=== PATIENT | male | born 2000 | race American Indian/Alaskan Native ===

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

== ENCOUNTER 2020-06-18 11:42 | Emergency (ER) | payer SELFPAY ==
[2020-06-18] MEDS ORDERED: Albuterol/Ipratropium 3.0-0.5 MG/3 ML Neb Soln NEB ONE (12:53)
--- NOTE | 2020-06-18 12:54 | EDM.PDOC ---
ED HPI GENERAL MEDICAL PROBLEM - General Chief Complaint: Respiratory Problem Stated Complaint: sob Time Seen by Provider: 06/18/20 12:45 Source of Information: Reports: Patient History Limitations: Reports: No Limitations - History of Present Illness INITIAL COMMENTS - FREE TEXT/NARRATIVE: Patient comes emergency department today with complaints of shortness of breath and wheezing. This patient over the past 2 to 3 days is had quite a bit of sinus congestion pressure and drainage in the posterior pharynx. He has been quite a bit short of breath with physical exertion. There is been a couple times that he was so short of breath that it made him collapsed to the ground. He has no history of asthma. He has no pain in his chest. He has no cough or congestion. No fever no chills. He was just tested for COVID earlier this week that was negative. He has had no other COVID symptoms are COVID concerns. He is actually here from [facility] for football. Not a smoker. He has no chest pain. He has never had anything like this before. He has noticed that he has been a little bit more short of breath ever since he moved here from [facility]. - Related Data Allergies Allergy/AdvReac Type Severity Reaction Status Date / Time No Known Allergies Allergy Verified 06/18/20 12:12 Home Meds: Home Meds predniSONE 40 mg PO DAILY #8 tab 06/18/20 [Rx] Past Medical History - Past Health History Medical/Surgical History: Denies Medical/Surgical History Social & Family History - Tobacco Use Smoking Status *Q: Never Smoker ED ROS GENERAL - Review of Systems Review Of Systems: Comprehensive ROS is negative, except as noted in HPI. ED EXAM, GENERAL - Physical Exam Exam: See Below Exam Limited By: No Limitations General Appearance: Alert, WD/WN, No Apparent Distress Nose: Nasal Swelling (Is quite a bit of pale boggy turbinates with quite a bit of a discharge.), Clear Rhinorrhea Throat/Mouth: Normal Inspection, Normal Lips, Normal Teeth, Normal Gums, Normal Voice, No Airway Compromise. No: Normal Oropharynx (Posterior pharynx with pink salmon-colored vesicles and cobblestoning consistent with postnasal drip) Head: Atraumatic, Normocephalic Neck: Normal Inspection, Supple, Full Range of Motion. No: Lymphadenopathy (L), Lymphadenopathy (R) Respiratory/Chest: No Respiratory Distress, No Accessory Muscle Use, Decreased Breath Sounds (Throughout), Wheezing (Inspiratory and expiratory). No: Crackles, Rales, Rhonchi, Stridor Cardiovascular: Normal Peripheral Pulses, Regular Rate, Rhythm, Tachycardia Peripheral Pulses: 2+: Radial (L), Radial (R), Posterior Tibial (L), Posterior Tibial (R), Dorsalis Pedis (L), Dorsalis Pedis (R) GI/Abdominal: Normal Bowel Sounds, Soft, Non-Tender (Male) Exam: Deferred Rectal (Males) Exam: Deferred Back Exam: Normal Inspection, Full Range of Motion Extremities: Normal Inspection, Normal Range of Motion Neurological: Alert, Oriented, Normal Cognition, No Motor/Sensory Deficits Psychiatric: Normal Affect, Normal Mood Skin Exam: Warm, Dry, Intact, Normal Color Course - Vital Signs Last Recorded V/S: Last Vital Signs Temp 98.2 F 06/18/20 11:50 Pulse 107 H 06/18/20 11:50 Resp 18 06/18/20 11:50 BP 151/84 H 06/18/20 11:50 Pulse Ox 92 L 06/18/20 11:50 - Orders/Labs/Meds Orders: Active Orders 24 hr Category Date Time Status Chest 2V [CR] Urgent Exams 06/18/20 12:53 Taken Labs: Laboratory Tests 06/18/20 06/18/20 06/18/20 Range/Units 12:03 13:00 13:00 WBC 10.2 H (4.0-10.0) x10^3/uL RBC 5.96 (4.5-6.0) x10^6/uL Hgb 15.5 (14.0-18.0) g/dL Hct 46.7 (40.0-52.0) % MCV 78.4 (78.0-93.0) fL MCH 26.0 (26.0-32.0) pg MCHC 33.2 (32.0-36.0) g/dL RDW Coeff of Ritchie 13.4 (10.0-15.0) % Plt Count 316 (130-400) x10^3/uL Add Manual Diff Yes Neutrophils % (Manual) 56 (50-80) % Lymphocytes % (Manual) 16 L (25-50) % Monocytes % (Manual) 9 (2-11) % Eosinophils % (Manual) 19 H (0-4) % Platelet Estimate Adequate Microcytosis 1+ slight H Sodium 138 (136-145) mmol/L Potassium 4.0 (3.5-5.1) mmol/L Chloride 101 (98-107) mmol/L Carbon Dioxide 29 (21-32) mmol/L Anion Gap 12.0 (10-20) mmol/L BUN 9 (7-18) mg/dL Creatinine 1.2 (0.70-1.30) mg/dL Est Cr Clr Drug Dosing TNP Estimated GFR (MDRD) > 60 Glucose 96 (74-106) mg/dL Calcium 9.5 (8.5-10.1) mg/dL C-Reactive Protein 2.9 H (<=0.9) mg/dL COVID-19 (CLEMENCIA) Negative (NEGATIVE) Meds: Medications Discontinued Medications Generic Name Dose Route Start Last Admin Trade Name Freq PRN Reason Stop Dose Admin Albuterol 0 gm 06/18/20 13:34 06/18/20 13:50 Ventolin Hfa INH 18 gm Q4H PRN Administration Shortness of Breath Albuterol/Ipratropium 3 ml 06/18/20 12:53 06/18/20 13:03 Duoneb 3.0-0.5 Mg/3 Ml NEB 06/18/20 12:54 3 ml ONETIME ONE Administration Prednisone 40 mg 06/18/20 13:35 06/18/20 13:50 Prednisone PO 06/18/20 13:36 40 mg NOW ONE Administration - Radiology Interpretation Free Text/Narrative:: This x-ray per radiology says negative examination of the chest - Re-Assessments/Exams Free Text/Narrative Re-Assessment/Exam: 06/18/20 15:52 Laboratory evaluation is rather unremarkable with a mildly elevated WBC at 10.5. A CRP of 2.9 minimally elevated. Chest x-ray is negative for pneumonia or consolidation or other concerns per radiology. She was given a DuoNeb with complete symptomatic resolution. He has much improved air movement throughout his lung barillas by auscultation. He has a very faint expiratory wheezing and he feels back to normal. Although he has no history of asthma this is kind of the presentation but with the abrupt onset of it and his age this is most likely allergic type response with the findings in his nares as well as the posterior pharynx. We will treat him with an inhaler as well as prednisone and nasal steroids. I would like him to recheck in a week or so if he still struggling with any concerns to see if he needs any further work-up or evaluation. He is understanding of this and his questions are answered. Departure - Departure Time of Disposition: 13:35 Disposition: Home, Self-Care 01 Clinical Impression: Wheezing - Discharge Information Prescriptions: predniSONE 40 mg PO DAILY #8 tab Instructions: Shortness of Breath, Adult, [id number], How to Use a Metered Dose Inhaler Referrals: PCP,Not In Area [Primary Care Provider] - Forms: ED Department Discharge Additional Instructions: Flonase nasal spray OTC 2 sprays each nostril once daily for a week and then 1 spray each nostril. OTC Zyrtec Deisi or Xyzal for wheezing SOB and allergies as well. Albuterol MDI inhaler, 2 puffs every 4 hrs as needed for SOB. Dispensed from the ED. Prednisone 40mg daily for the next 5 days. First dose given in the ED and RX sent to [facility]. Return to the ED if new or worsening symptoms. Follow up with PCP for recheck. May need more testing or different therapy although I feel this is most likely allergies. Sepsis Event Note (ED) - Evaluation Sepsis Screening Result: No Definite Risk - Focused Exam Vital Signs: Vital Signs Temp Pulse Resp BP Pulse Ox 06/18/20 11:50 98.2 F 107 H 18 151/84 H 92 L - My Orders Last 24 Hours: My Active Orders 06/18/20 12:53 Chest 2V [CR] Urgent - Assessment/Plan Last 24 Hours: My Active Orders 06/18/20 12:53 Chest 2V [CR] Urgent
[2020-06-18 13:17] LABS: CHLORIDE,CL 101 mmol/L (98-107); SODIUM,NA 138 mmol/L (136-145)
[2020-06-18] MEDS ORDERED: Albuterol HFA 18 Gm Inhaler INH PRN (13:34)
[2020-06-18] MEDS ORDERED: predniSONE 20 MG Tab PO ONE (13:35)
--- NOTE | 2020-06-19 10:44 | CR ---
[id number] RAD/RAD Chest PA And Lateral EXAM: RAD Chest PA And Lateral INDICATION: CHEST PAIN/ SOB COMPARISON: None. DISCUSSION: Cardiomediastinal silhouette is normal in size and contour. No infiltrate, effusion, pneumothorax, or edema. IMPRESSION: Negative examination of the chest. Garrett Barillas MD 06/19/20 1043 Thank you for allowing us to participate in the care of your patient.
== END 2020-06-18 13:53 | disposition home or self-care (01) ==
LOC: VM.ED 11:42
DX: R06.2 Wheezing (principal); R06.02 Shortness of breath; Z20.828 Contact with and (suspected) exposure to other viral communicable diseases; Z79.899 Other long term (current) drug therapy
CPT/HCPCS: 36415; 71046; 80048; 85025; 86140; 94640; 99284; 99285-25; A9270-GY; J7512; J7620-GY; U0002

== ENCOUNTER 2020-06-26 17:38 | Emergency (ER) | payer MEDICAID, OTHER ==
[2020-06-26] MEDS ORDERED: Sodium Chloride 0.9% 10 ML Syringe FLUSH PRN (17:46)
--- NOTE | 2020-06-26 17:52 | EDM.PDOC ---
ED HPI GENERAL MEDICAL PROBLEM - General Stated Complaint: SOB Time Seen by Provider: 06/26/20 17:46 Source of Information: Reports: Patient - History of Present Illness INITIAL COMMENTS - FREE TEXT/NARRATIVE: Dante is a 19 y/o male who is brought to the ER by ambulance after he had an acute onset of shortness of breath a couple hours ago. He denied that he felt ill prior to the SOB starting. He does report that one of his housemate's girlfriend was + for COVID and he has been on quarantine since finding that out. He denies any previous respiratory history. - Related Data Allergies Allergy/AdvReac Type Severity Reaction Status Date / Time No Known Allergies Allergy Verified 06/26/20 18:07 Home Meds: Home Meds predniSONE 40 mg PO DAILY #8 tab 06/18/20 [Rx] Past Medical History - Past Health History Medical/Surgical History: Denies Medical/Surgical History Review of Systems - Review of Systems Review Of Systems: See Below Constitutional: Reports: Diaphoresis Eyes: Reports: No Symptoms Ears: Reports: No Symptoms Nose: Reports: No Symptoms Mouth/Throat: Reports: No Symptoms Respiratory: Reports: Shortness of Breath, Wheezing Cardiovascular: Reports: No Symptoms GI/Abdominal: Reports: Nausea Genitourinary: Reports: No Symptoms Musculoskeletal: Reports: No Symptoms Skin: Reports: No Symptoms Neurological: Reports: No Symptoms Psychiatric: Reports: No Symptoms ED EXAM, GENERAL - Physical Exam Exam: See Below General Appearance: Alert, WD/WN (Adolescent male, he is obviously in distress with the SOB and sitting up to catch his breath) Ears: Hearing Grossly Normal Nose: Normal Inspection Throat/Mouth: Normal Teeth Head: Atraumatic, Normocephalic Neck: Normal Inspection Respiratory/Chest: Respiratory Distress, Decreased Breath Sounds, Wheezing (faisnt wheezing inspiratory and expiratory) GI/Abdominal: Normal Bowel Sounds, Soft (Male) Exam: Deferred Rectal (Males) Exam: Deferred Back Exam: Normal Inspection Extremities: Normal Inspection, Normal Capillary Refill Neurological: Alert, Oriented, CN II-XII Intact, Normal Cognition Psychiatric: Anxious Skin Exam: Warm, Intact, Normal Color, No Rash, Diaphoretic Lymphatic: No Adenopathy EKG INTERPRETATION EKG Date: 06/26/20 Time: 18:33 Rhythm: NSR Rate (Beats/Min): 135 [place]: Normal P-Wave: Present QRS: Normal ST-T: Normal QT: Normal Comparison: NA - No Prior EKG Course - Vital Signs Text/Narrative:: The patient was seen by the GROUP SALES REPRESENTATIVE. Labs, CXR, adn EKG ordered. He was given SoluMedrol 125mg IVPB and a neb prior to ER arrival. Patient complained of nausea and was given Zofran 4mg IVP. 1899 Patient breathing easier and is now on oxygen per NC at 4 liters/min. Still needing to sit up in a tripod position for breathing. Note D-Dimer elevated, CTA ordered. Oxygen decreased to 2 liters to see if patient can tolerate it. Will repeat Albuterol neb since patient is still mildly SOB. 2099 CTA results note moderate pneumomediastinum. Grayson Yang contacted and discussed case with hospitalist who advises that the patient be sent to [facility] ER for further evaluation. Dr Rainey accepted the patient for transfer to the ER. 2119 Patient now on room air and sats 91-92%, still in a position of comfort for breathing. Patient left the ER with [facility] in good condition. Last Recorded V/S: Last Vital Signs Temp 37.0 C 06/26/20 17:45 Pulse 94 06/26/20 17:45 Resp 20 06/26/20 17:45 BP 121/81 06/26/20 17:45 Pulse Ox 98 06/26/20 17:45 - Orders/Labs/Meds Orders: Active Orders 24 hr Category Date Time Status EKG Documentation Completion [RC] STAT Care 06/26/20 17:46 Active RT Aerosol Therapy [RC] ASDIRECTED Care 06/26/20 17:59 Active RT Aerosol Therapy [RC] ASDIRECTED Care 06/26/20 19:25 Ordered Sodium Chloride 0.9% [Saline Flush] Med 06/26/20 17:46 Active 10 ml FLUSH ASDIRECTED PRN Saline Lock Insert [OM.PC] Stat Oth 06/26/20 17:46 Ordered Medication Orders Sodium Chloride (Saline Flush) 10 ml FLUSH ASDIRECTED PRN PRN Reason: Keep Vein Open Labs: Laboratory Tests 06/26/20 06/26/20 06/26/20 Range/Units 17:54 18:18 18:18 WBC 30.8 H* (4.0-10.0) x10^3/uL RBC 6.32 H (4.5-6.0) x10^6/uL Hgb 16.7 (14.0-18.0) g/dL Hct 49.1 (40.0-52.0) % MCV 77.7 L (78.0-93.0) fL MCH 26.4 (26.0-32.0) pg MCHC 34.0 (32.0-36.0) g/dL RDW Coeff of Ritchie 14.7 (10.0-15.0) % Plt Count 459 H D (130-400) x10^3/uL Add Manual Diff Yes Neutrophils % (Manual) 69 (50-80) % Band Neutrophils % 7 H (0-6) % Lymphocytes % (Manual) 9 L (25-50) % Monocytes % (Manual) 4 (2-11) % Eosinophils % (Manual) 11 H (0-4) % Platelet Estimate Increased H Microcytosis 1+ slight H PT 10.6 (9.5-12.3) SEC INR 1.0 L (2.0-3.5) APTT 24.3 L (25.6-32.8) SEC D-Dimer, Quantitative (<=0.58) mg/LFEU POC ABG pH (7.35-7.45) POC ABG pCO2 (35-45) mmHG POC ABG pO2 (80-105) mmHG POC ABG HCO3 (22-26) mmol/L POC ABG Total CO2 (23-27) mmol/L POC ABG O2 Sat (95-98) % POC ABG Base Excess (-2-3) mmol/L POC FiO2 Sodium (136-145) mmol/L Potassium (3.5-5.1) mmol/L Chloride (98-107) mmol/L Carbon Dioxide (21-32) mmol/L Anion Gap (10-20) mmol/L BUN (7-18) mg/dL Creatinine (0.70-1.30) mg/dL Est Cr Clr Drug Dosing Estimated GFR (MDRD) Glucose (74-106) mg/dL Lactic Acid (0.4-2.0) mmol/L Calcium (8.5-10.1) mg/dL Corrected Calcium (8.5-10.1) mg/dL Magnesium (1.8-2.4) mg/dL Total Bilirubin (0.2-1.0) mg/dL AST (15-37) U/L ALT (16-63) U/L Alkaline Phosphatase (46-116) U/L Troponin I (<=0.056) ng/mL Total Protein (6.4-8.2) g/dL Albumin (3.4-5.0) g/dL Globulin Albumin/Globulin Ratio POC Result Comm Urine Opiates Screen (NEGATIVE) Ur Buprenorphine Scrn (NEGATIVE) Ur Oxycodone Screen (NEGATIVE) Ur EDDP (Meth Metab) (NEGATIVE) Urine Methadone Screen (NEGATIVE) Ur Barbituates Screen (NEGATIVE) Ur Tricyclics Screen (NEGATIVE) Ur Phencyclidine Scrn (NEGATIVE) Ur Amphetamines Screen (NEGATIVE) U Methamphetamines Scrn (NEGATIVE) Urine MDMA Screen (NEGATIVE) U Benzodiazepines Scrn (NEGATIVE) Urine Cocaine Screen (NEGATIVE) U Marijuana (THC) Screen (NEGATIVE) Ethyl Alcohol (0-3) mg/dL COVID-19 (CLEMENCIA) Negative (NEGATIVE) 06/26/20 06/26/20 06/26/20 Range/Units 18:18 18:18 18:18 WBC (4.0-10.0) x10^3/uL RBC (4.5-6.0) x10^6/uL Hgb (14.0-18.0) g/dL Hct (40.0-52.0) % MCV (78.0-93.0) fL MCH (26.0-32.0) pg MCHC (32.0-36.0) g/dL RDW Coeff of Ritchie (10.0-15.0) % Plt Count (130-400) x10^3/uL Add Manual Diff Neutrophils % (Manual) (50-80) % Band Neutrophils % (0-6) % Lymphocytes % (Manual) (25-50) % Monocytes % (Manual) (2-11) % Eosinophils % (Manual) (0-4) % Platelet Estimate Microcytosis PT (9.5-12.3) SEC INR (2.0-3.5) APTT (25.6-32.8) SEC D-Dimer, Quantitative 0.94 H (<=0.58) mg/LFEU POC ABG pH (7.35-7.45) POC ABG pCO2 (35-45) mmHG POC ABG pO2 (80-105) mmHG POC ABG HCO3 (22-26) mmol/L POC ABG Total CO2 (23-27) mmol/L POC ABG O2 Sat (95-98) % POC ABG Base Excess (-2-3) mmol/L POC FiO2 Sodium 141 (136-145) mmol/L Potassium 4.0 (3.5-5.1) mmol/L Chloride 101 (98-107) mmol/L Carbon Dioxide 26 (21-32) mmol/L Anion Gap 18.0 (10-20) mmol/L BUN 9 (7-18) mg/dL Creatinine 1.1 (0.70-1.30) mg/dL Est Cr Clr Drug Dosing TNP Estimated GFR (MDRD) > 60 Glucose 195 H (74-106) mg/dL Lactic Acid 1.7 (0.4-2.0) mmol/L Calcium 9.5 (8.5-10.1) mg/dL Corrected Calcium 8.86 (8.5-10.1) mg/dL Magnesium 2.1 (1.8-2.4) mg/dL Total Bilirubin 0.5 (0.2-1.0) mg/dL AST 39 H (15-37) U/L ALT 72 H (16-63) U/L Alkaline Phosphatase 122 H (46-116) U/L Troponin I < 0.017 (<=0.056) ng/mL Total Protein 8.8 H (6.4-8.2) g/dL Albumin 4.8 (3.4-5.0) g/dL Globulin 4.0 Albumin/Globulin Ratio 1.20 POC Result Comm Urine Opiates Screen (NEGATIVE) Ur Buprenorphine Scrn (NEGATIVE) Ur Oxycodone Screen (NEGATIVE) Ur EDDP (Meth Metab) (NEGATIVE) Urine Methadone Screen (NEGATIVE) Ur Barbituates Screen (NEGATIVE) Ur Tricyclics Screen (NEGATIVE) Ur Phencyclidine Scrn (NEGATIVE) Ur Amphetamines Screen (NEGATIVE) U Methamphetamines Scrn (NEGATIVE) Urine MDMA Screen (NEGATIVE) U Benzodiazepines Scrn (NEGATIVE) Urine Cocaine Screen (NEGATIVE) U Marijuana (THC) Screen (NEGATIVE) Ethyl Alcohol < 3 (0-3) mg/dL COVID-19 (CLEMENCIA) (NEGATIVE) 06/26/20 06/26/20 Range/Units 18:27 20:34 WBC (4.0-10.0) x10^3/uL RBC (4.5-6.0) x10^6/uL Hgb (14.0-18.0) g/dL Hct (40.0-52.0) % MCV (78.0-93.0) fL MCH (26.0-32.0) pg MCHC (32.0-36.0) g/dL RDW Coeff of Ritchie (10.0-15.0) % Plt Count (130-400) x10^3/uL Add Manual Diff Neutrophils % (Manual) (50-80) % Band Neutrophils % (0-6) % Lymphocytes % (Manual) (25-50) % Monocytes % (Manual) (2-11) % Eosinophils % (Manual) (0-4) % Platelet Estimate Microcytosis PT (9.5-12.3) SEC INR (2.0-3.5) APTT (25.6-32.8) SEC D-Dimer, Quantitative (<=0.58) mg/LFEU POC ABG pH 7.278 L* (7.35-7.45) POC ABG pCO2 58 H (35-45) mmHG POC ABG pO2 149 H (80-105) mmHG POC ABG HCO3 27 H (22-26) mmol/L POC ABG Total CO2 29 H (23-27) mmol/L POC ABG O2 Sat 99 H (95-98) % POC ABG Base Excess 0 (-2-3) mmol/L POC FiO2 0.80 Sodium (136-145) mmol/L Potassium (3.5-5.1) mmol/L Chloride (98-107) mmol/L Carbon Dioxide (21-32) mmol/L Anion Gap (10-20) mmol/L BUN (7-18) mg/dL Creatinine (0.70-1.30) mg/dL Est Cr Clr Drug Dosing Estimated GFR (MDRD) Glucose (74-106) mg/dL Lactic Acid (0.4-2.0) mmol/L Calcium (8.5-10.1) mg/dL Corrected Calcium (8.5-10.1) mg/dL Magnesium (1.8-2.4) mg/dL Total Bilirubin (0.2-1.0) mg/dL AST (15-37) U/L ALT (16-63) U/L Alkaline Phosphatase (46-116) U/L Troponin I (<=0.056) ng/mL Total Protein (6.4-8.2) g/dL Albumin (3.4-5.0) g/dL Globulin Albumin/Globulin Ratio POC Result Comm Called results Urine Opiates Screen Negative (NEGATIVE) Ur Buprenorphine Scrn Negative (NEGATIVE) Ur Oxycodone Screen Negative (NEGATIVE) Ur EDDP (Meth Metab) Negative (NEGATIVE) Urine Methadone Screen Negative (NEGATIVE) Ur Barbituates Screen Negative (NEGATIVE) Ur Tricyclics Screen Negative (NEGATIVE) Ur Phencyclidine Scrn Negative (NEGATIVE) Ur Amphetamines Screen Negative (NEGATIVE) U Methamphetamines Scrn Negative (NEGATIVE) Urine MDMA Screen Negative (NEGATIVE) U Benzodiazepines Scrn Negative (NEGATIVE) Urine Cocaine Screen Negative (NEGATIVE) U Marijuana (THC) Screen Positive H (NEGATIVE) Ethyl Alcohol (0-3) mg/dL COVID-19 (CLEMENCIA) (NEGATIVE) Meds: Medications Generic Name Dose Route Start Last Admin Trade Name Freq PRN Reason Stop Dose Admin Sodium Chloride 10 ml 06/26/20 17:46 Saline Flush FLUSH ASDIRECTED PRN Keep Vein Open Discontinued Medications Generic Name Dose Route Start Last Admin Trade Name Freq PRN Reason Stop Dose Admin Albuterol 2.5 mg 06/26/20 17:58 06/26/20 17:45 [facility] 17:59 2.5 mg ONETIME ONE Administration Albuterol 2.5 mg 06/26/20 19:25 06/26/20 19:45 Proventil Neb Soln [facility] 06/26/20 19:26 2.5 mg ONETIME ONE Administration Iopamidol 100 ml 06/26/20 20:39 06/26/20 20:41 Isovue-300 (61%) IVPUSH 06/26/20 20:40 100 ml ONETIME ONE Administration Ondansetron HCl 4 mg 06/26/20 17:58 06/26/20 18:00 Zofran IVPUSH 06/26/20 17:59 4 mg ONETIME ONE Administration - Radiology Interpretation Free Text/Narrative:: CXR=neg CTA=moderate pneumomediastinumm, possible bronchitis Departure - Departure Time of Disposition: 21:29 Disposition: DC/Tfer to Acute Hospital 02 Condition: Good Clinical Impression: Respiratory distress, acute, Pneumomediastinum - Discharge Information *PRESCRIPTION DRUG MONITORING PROGRAM REVIEWED*: Not Applicable *COPY OF PRESCRIPTION DRUG MONITORING REPORT IN PATIENT HE: Not Applicable Referrals: PCP,None [Primary Care Provider] - Forms: Interfacility Transfer EMTALA Additional Instructions: -Transfer to [facility] to ER via [facility] Sepsis Event Note (ED) - Focused Exam Vital Signs: Vital Signs Temp Pulse Resp BP Pulse Ox 06/26/20 17:45 37.0 C 94 20 121/81 98 - My Orders Last 24 Hours: My Active Orders 06/26/20 17:46 EKG Documentation Completion [RC] STAT Sodium Chloride 0.9% [Saline Flush] 10 ml FLUSH ASDIRECTED PRN Saline Lock Insert [OM.PC] Stat 06/26/20 17:59 RT Aerosol Therapy [RC] ASDIRECTED 06/26/20 19:25 RT Aerosol Therapy [RC] ASDIRECTED - Assessment/Plan Last 24 Hours: My Active Orders 06/26/20 17:46 EKG Documentation Completion [RC] STAT Sodium Chloride 0.9% [Saline Flush] 10 ml FLUSH ASDIRECTED PRN Saline Lock Insert [OM.PC] Stat 06/26/20 17:59 RT Aerosol Therapy [RC] ASDIRECTED 06/26/20 19:25 RT Aerosol Therapy [RC] ASDIRECTED
[2020-06-26] MEDS ORDERED: Albuterol 0.083% 2.5 MG/3 ML Neb Soln NEB ONE ×2 (17:58→19:25)
[2020-06-26] MEDS ORDERED: Ondansetron 4 MG/2 ML SDV IVPUSH ONE (17:58)
[2020-06-26 18:47] LABS: PTT,PARTIAL THROMBOPLSTIN TIME 24.3 SEC (25.6-32.8)
[2020-06-26 19:00] LABS: CHLORIDE,CL 101 mmol/L (98-107); SODIUM,NA 141 mmol/L (136-145)
--- NOTE | 2020-06-26 19:16 | CR ---
[id number] RAD/RAD Chest PA or AP 1V EXAM: SINGLE VIEW CHEST. INDICATION: SHORTNESS OF BREATH COMPARISON: CORRELATION IS MADE WITH JUNE 18, 2020 FINDINGS: The lungs are clear There is no pneumothorax The cardiac silhouette is stable IMPRESSION: NO ACUTE PROCESS Jese Jimenez MD 06/26/20 [id number] Thank you for allowing us to participate in the care of your patient.
[2020-06-26] MEDS ORDERED: Iopamidol 612 MG/ML 100 ML Bottle IVPUSH ONE (20:39)
[2020-06-26 20:45] LABS: BUPRENORPHINE,URINE NEGATIVE (NEGATIVE); MARIJUANA,URINE POSITIVE (NEGATIVE); METHYLENEDIOXYMETHAMP,UR NEGATIVE (NEGATIVE); PHENCYCLIDINE,URINE NEGATIVE (NEGATIVE)
--- NOTE | 2020-06-26 21:24 | CT ---
[id number] CT/CTA Chest Exam: CTA Chest Clinical Data: SHORTNESS OF BREATH ELEVATED D-DIMER COMPARISON: NO PREVIOUS SIMILAR EXAM IS AVAILABLE FINDINGS: There is evidence of pneumomediastinum. Report was provided at the time of the exam. There is no infiltrate There is no pneumothorax. There is no pleural fluid collection. There are no pulmonary emboli There is no mediastinal mass or adenopathy IMPRESSION: PNEUMOMEDIASTINUM Jese Jimenez MD 06/26/20 [id number] Thank you for allowing us to participate in the care of your patient.
== END 2020-06-26 21:50 | disposition short-term general hospital (02) ==
LOC: VM.ED 17:38
DX: J98.2 Interstitial emphysema (principal); Z20.828 Contact with and (suspected) exposure to other viral communicable diseases; Z79.899 Other long term (current) drug therapy
CPT/HCPCS: 36415; 36600; 71045; 71275; 80053; 80305-QW; 80307; 82803; 83605; 83735; 84484; 85025; 85379; 85610; 85730; 93005; 93010; 94640; 96374; 99284; 99285-25; J2405; J7613-GY; Q9967; U0002

== ENCOUNTER 2020-07-14 19:04 | Emergency (ER) | payer MEDICAID, OTHER ==
[2020-07-14] MEDS ORDERED: Albuterol/Ipratropium 3.0-0.5 MG/3 ML Neb Soln NEB ONE (19:23)
[2020-07-14] MEDS ORDERED: Take Home: predniSONE 20 MG, 2 Tab Pack PO ONE (20:01)
--- NOTE | 2020-07-14 20:13 | CR ---
[id number] RAD/RAD Chest PA And Lateral EXAM: RAD Chest PA And Lateral INDICATION: DIFFICULTY BREATHING COMPARISON: None. DISCUSSION: Cardiomediastinal silhouette is normal in size and contour. No infiltrate, effusion, pneumothorax, or edema. IMPRESSION: No significant cardiopulmonary abnormality. Solomon Cox DO 07/14/202011 Thank you for allowing us to participate in the care of your patient.
--- NOTE | 2020-07-21 03:17 | EDM.PDOC ---
ED HPI GENERAL MEDICAL PROBLEM - General Chief Complaint: Cardiovascular Problem Stated Complaint: GENERAL Time Seen by Provider: 07/14/20 19:20 Source of Information: Reports: Patient History Limitations: Reports: No Limitations - History of Present Illness INITIAL COMMENTS - FREE TEXT/NARRATIVE: Pt. 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 Pt. has been having episodes of wheezing and dyspnea for the past 1.5 months. He has been seen in ER several times. The last time he was seen in ER, he was actually transferred to [facility] for asthma exacerbation and pneumomediastinum. Pt. was discharged on on albuterol inhaler and short course of oral prednisone. Pt. 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 Pt. has not been officially diagnosed with asthma. He has yet to establish with a PCP locally, as he has been asked to do. He has not had a pulmonary function test. Pt. denies any fever or chills. He states that he was feeling better when he had finished taking the prednisone, but admitted that for the past 2 days, he has been experiencing increased shortness of breath, decreased exercise tolerance, and wheezing. He has been using his albuterol inhaler frequently. Again, pt. has not PCP. He is not on any ICS or LABA therapy and his not had a PFT. Pt. states he was screened for covid a couple of days ago, and denies any ill contacts. Onset Date: 07/13/20 Location: Reports: Chest, Generalized Associated Symptoms: Reports: Shortness of Breath. Denies: Confusion, Chest Pain, Diaphoresis, Fever/Chills, Headaches, Malaise, Nausea/Vomiting, Rash, Seizure, Syncope, Weakness - Related Data Allergies Allergy/AdvReac Type Severity Reaction Status Date / Time No Known Allergies Allergy Verified 07/14/20 19:43 Home Meds: Home Meds . [No Known Home Meds] 07/14/20 [History] Past Medical History - Past Health History Medical/Surgical History: Denies Medical/Surgical History Social & Family History - Tobacco Use Smoking Status *Q: Never Smoker ED ROS GENERAL - Review of Systems Review Of Systems: See Below Constitutional: Reports: No Symptoms HEENT: Reports: No Symptoms Respiratory: Reports: Shortness of Breath, Wheezing Cardiovascular: Reports: No Symptoms Endocrine: Reports: No Symptoms GI/Abdominal: Reports: No Symptoms : Reports: No Symptoms Musculoskeletal: Reports: No Symptoms Skin: Reports: No Symptoms Neurological: Reports: No Symptoms Psychiatric: Reports: No Symptoms Hematologic/Lymphatic: Reports: No Symptoms Immunologic: Reports: No Symptoms ED EXAM, GENERAL - Physical Exam Exam: See Below Exam Limited By: No Limitations General Appearance: Alert, WD/WN, No Apparent Distress ( ) Head: Atraumatic, Normocephalic Neck: Normal Inspection, Supple, Non-Tender, Full Range of Motion Respiratory/Chest: Decreased Breath Sounds, Wheezing Cardiovascular: Normal Peripheral Pulses, Regular Rate, Rhythm, No Edema, No JVD Peripheral Pulses: 4+: Radial (L) GI/Abdominal: Soft, Non-Tender, No Mass (Male) Exam: Deferred Rectal (Males) Exam: Deferred Back Exam: Normal Inspection, Full Range of Motion Extremities: Normal Inspection, Normal Range of Motion, Non-Tender, No Pedal Edema, Normal Capillary Refill Neurological: Alert, Oriented, CN II-XII Intact, Normal Cognition, Normal Gait, Normal Reflexes, No Motor/Sensory Deficits Psychiatric: Normal Affect, Normal Mood Skin Exam: Warm, Dry, Intact, Normal Color, No Rash Lymphatic: No Adenopathy Course - Vital Signs Last Recorded V/S: Last Vital Signs Temp 37.6 C 07/14/20 19:10 Pulse 92 07/14/20 19:10 Resp 24 H 07/14/20 19:10 BP 148/79 H 07/14/20 19:10 Pulse Ox 96 07/14/20 19:10 - Orders/Labs/Meds Meds: Medications Discontinued Medications Generic Name Dose Route Start Last Admin Trade Name Wesley PRN Reason Stop Dose Admin Albuterol/Ipratropium 3 ml 07/14/20 19:23 07/14/20 19:27 Duoneb 3.0-0.5 Mg/3 Ml NEB 07/14/20 19:24 3 ml ONETIME ONE Administration Prednisone 2 packet 07/14/20 20:01 07/14/20 20:08 Take Home: Prednisone 20 Mg, 2 Tab Pack PO 07/14/20 20:02 2 packet ONETIME ONE Administration Departure - Departure Time of Disposition: 20:30 Disposition: Home, Self-Care 01 Clinical Impression: Asthma exacerbation Instructions: Asthma, Adult, Prednisone tablets Referrals: PCP,None [Primary Care Provider] - Forms: ED Department Discharge Additional Instructions: Prednisone 20 mg 2 tabs every day for 6 days Albuterol inhaler 2 puffs every 4-6 hours as needed for trouble breathing No heavy cardio until you have had a pulmonary function test at one of the clinics. You cannot be formally diagnosed with asthma without a PFT. If you have asthma, they can start you on medication that will prevent you from having frequent episodes of trouble with breathing. Also, your blood pressure has been elevated, both today and during your last visit. This needs to be monitored as well. Establish care with either [facility] [phone] or [facility] [phone]. Sepsis Event Note (ED) - Evaluation Sepsis Screening Result: No Definite Risk - Problem List Review Problem List Initiated/Reviewed/Updated: Yes - Assessment/Plan Plan: Prednisone 20 mg 2 tabs every day for 6 days Albuterol inhaler 2 puffs every 4-6 hours as needed for trouble breathing No heavy cardio until you have had a pulmonary function test at one of the clinics. You cannot be formally diagnosed with asthma without a PFT. If you have asthma, they can start you on medication that will prevent you from having frequent episodes of trouble with breathing. Also, your blood pressure has been elevated, both today and during your last visit. This needs to be monitored as well. Establish care with either [facility] [phone] or [facility] [phone].
== END 2020-07-14 20:20 | disposition home or self-care (01) ==
LOC: VM.ED 19:04
DX: J45.901 Unspecified asthma with (acute) exacerbation (principal)
CPT/HCPCS: 71046; 99285-25; J7512; J7620-GY